=== PATIENT | male | born 1955 | race Caucasian/White ===

== ENCOUNTER 2020-06-22 17:20 | Emergency (ER) | payer BC ==
[2020-06-22] MEDS ORDERED: Nitroglycerin 0.4 MG Tab.SL ONE (17:40)
[2020-06-22] MEDS: Nitroglycerin 0.4 MG Tab.SL SL PRN ×3 (17:42→18:15)
--- NOTE | 2020-06-22 17:45 | EDM.PDOC ---
ED HPI GENERAL MEDICAL PROBLEM - General Chief Complaint: Chest Pain Stated Complaint: CHEST PAIN Time Seen by Provider: 06/22/20 17:37 Source of Information: Reports: Patient History Limitations: Reports: No Limitations - History of Present Illness INITIAL COMMENTS - FREE TEXT/NARRATIVE: Patient presents with left chest pain that started about 7.5 hours ago but worsened 1.5 hours ago with diaphoresis. He says it feels similar to a heart attack he had 7 years ago. He had cath then but was told there wasn't enough blockage to place a stent. He takes something for blood pressure too but hasn't had it today and doesn't remember what it is. On further questioning, he admits he hasn't been taking any of his meds for at least 3-4 weeks. Left Mid-Sternal Chest Pain Score (Numeric/FACES): 6 - Related Data Allergies Allergy/AdvReac Type Severity Reaction Status Date / Time No Known Drug Allergies Allergy Cannot Verified 06/22/20 17:28 Remember Home Meds: Home Meds Aspirin [Aspirin EC] 81 mg PO DAILY 06/22/20 [History] Spironolactone [Aldactone] 25 mg PO DAILY 06/22/20 [History] amLODIPine Besylate [Amlodipine Besylate] 10 mg PO DAILY 06/22/20 [History] atorvaSTATin [Lipitor] 20 mg PO BEDTIME 06/22/20 [History] carvediloL [Carvedilol] 25 mg PO BIDMEALS 06/22/20 [History] hydroCHLOROthiazide [Hydrochlorothiazide] 25 mg PO DAILY 06/22/20 [History] lisinopriL [Lisinopril] 40 mg PO DAILY 06/22/20 [History] ED ROS GENERAL - Review of Systems Review Of Systems: See Below Constitutional: Denies: Fever, Malaise, Weakness HEENT: Denies: Ear Pain, Throat Pain, Vision Change Respiratory: Denies: Shortness of Breath, Cough Cardiovascular: Reports: Chest Pain GI/Abdominal: Denies: Abdominal Pain, Diarrhea, Nausea, Vomiting : Reports: No Symptoms Musculoskeletal: Denies: Neck Pain, Shoulder Pain, Arm Pain, Back Pain, Hand Pain Skin: Reports: Diaphoresis. Denies: Cyanosis, Jaundice, Mottled, Pallor Neurological: Denies: Confusion, Dizziness, Headache, Seizure, Syncope, Trouble Speaking, Difficulty Walking Psychiatric: Denies: Agitation, Anxiety, Confusion ED EXAM, GENERAL - Physical Exam Exam: See Below Exam Limited By: No Limitations General Appearance: Alert, WD/WN, No Apparent Distress Eye Exam: Bilateral Eye: EOMI, Normal Inspection, PERRL Ears: Normal External Exam, Hearing Grossly Normal Nose: Normal Inspection, No Blood Throat/Mouth: Normal Inspection, Normal Lips, Normal Voice, No Airway Compromise Head: Atraumatic, Normocephalic Neck: Normal Inspection, Supple, Non-Tender, Full Range of Motion. No: Carotid Bruit Respiratory/Chest: No Respiratory Distress, Lungs Clear, Normal Breath Sounds, No Accessory Muscle Use Cardiovascular: Normal Peripheral Pulses, Regular Rate, Rhythm, No Murmur GI/Abdominal: Soft, Non-Tender, No Organomegaly Back Exam: Normal Inspection, Full Range of Motion Extremities: Normal Inspection, Normal Range of Motion Neurological: Alert, Oriented, Normal Cognition, No Motor/Sensory Deficits Psychiatric: Normal Affect, Normal Mood Skin Exam: Warm, Dry, Intact, Normal Color, No Rash Course - Vital Signs Last Recorded V/S: Last Vital Signs Temp 99.3 F 06/22/20 17:23 Pulse 96 06/22/20 17:23 Resp 16 06/22/20 17:23 BP 149/87 H 06/22/20 18:15 Pulse Ox 95 06/22/20 17:23 - Orders/Labs/Meds Orders: Active Orders 24 hr Category Date Time Status EKG Documentation Completion [RC] ASDIRECTED Care 06/22/20 17:42 Active Peripheral IV Care [RC] . DIRECTED Care 06/22/20 17:43 Active Nitroglycerin/D5W [Nitroglycerin 50 MG/D5W 250 ML] Med 06/22/20 19:15 Active 50 mg in 250 ml IV TITRATE Sodium Chloride 0.9% [Normal Saline] 100 ml Med 06/22/20 19:50 Active IV ASDIRECTED Sodium Chloride 0.9% [Saline Flush] Med 06/22/20 17:43 Active 10 ml FLUSH Q8HR PRN Peripheral IV Insertion Adult [OM.PC] Routine Oth 06/22/20 17:43 Ordered EKG 12 Lead [EK] Stat Ther 06/22/20 17:42 Ordered Medication Orders Nitroglycerin/Dextrose (Nitroglycerin 50 Mg/D5w 250 Ml) 50 mg in 250 mls @ 3 mls/hr IV TITRATE CHARMAINE; Protocol Last Admin: 06/22/20 19:52 Dose: 5 mcg/min, 1.5 mls/hr Documented by: RICHARD Sodium Chloride (Normal Saline) 100 mls @ 10 mls/hr IV ASDIRECTED CHARMAINE; Protocol Last Admin: 06/22/20 19:52 Dose: 10 mls/hr Documented by: BRYANT Sodium Chloride (Saline Flush) 10 ml FLUSH Q8HR PRN PRN Reason: keep vein open Last Admin: 06/22/20 19:51 Dose: 10 ml Documented by: Admin: 06/22/20 18:52 Dose: 10 ml Documented by: RICHARD Labs: Laboratory Tests 06/22/20 06/22/20 06/22/20 Range/Units 17:35 17:35 17:35 WBC 12.39 H (5.00-10.00) 10^3/uL RBC 5.29 (4.50-6.00) 10^6/uL Hgb 14.7 (13.0-17.0) g/dL Hct 46.0 (40.0-52.0) % MCV 87.0 (82.0-92.0) fL MCH 27.8 (27.0-31.0) pg MCHC 32.0 (32.0-36.0) g/dL RDW 14.5 (11.5-14.5) % Plt Count 288 (150-400) 10^3/uL MPV 9.1 (7.4-10.4) fL Immature Gran % (Auto) 0.6 (0.0-5.0) % Neut % (Auto) 63.3 (50.0-70.0) % Lymph % (Auto) 18.6 L (20.0-40.0) % [place] % (Auto) 12.5 H (2.0-8.0) % Eos % (Auto) 4.4 H (1.0-3.0) % Baso % (Auto) 0.6 (0.0-1.0) % Neut # (Auto) 7.85 H (2.50-7.00) 10^3/uL Lymph # (Auto) 2.31 (1.00-4.00) 10^3/uL [place] # (Auto) 1.55 H (0.10-0.80) 10^3/uL Eos # (Auto) 0.54 H (0.10-0.30) 10^3/uL Baso # (Auto) 0.07 (0.00-0.10) 10^3/uL Immature Gran # (Auto) 0.07 (0.00-0.50) 10^3/uL APTT 27.1 (22.8-31.4) SEC Sodium 134 L (136-145) mmol/L Potassium 4.3 (3.3-5.3) mmol/L Chloride 102 (98-115) mmol/L Carbon Dioxide 26.2 (21.0-32.0) mmol/L Anion Gap 10.1 (5-15) mmol/L BUN 35 H (6-25) mg/dL Creatinine 1.72 H (0.51-1.17) mg/dL Est Cr Clr Drug Dosing TNP Estimated GFR (MDRD) 40 mL/min Glucose 139 H (75 - 99) mg/dL Calcium 8.8 (8.7-10.3) mg/dL Total Bilirubin 0.3 (0.2-1.0) mg/dL AST 31 (15-37) U/L ALT 35 (12-78) U/L Alkaline Phosphatase 160 H (46-116) IU/L Troponin I 0.21 H* (0.00-0.070) ng/mL Total Protein 6.8 (6.4-8.2) g/dL Albumin 3.25 (3.00-4.80) g/dL SARS CoV-2 RNA Rapid GA (NEGATIVE) 06/22/20 Range/Units 20:27 WBC (5.00-10.00) 10^3/uL RBC (4.50-6.00) 10^6/uL Hgb (13.0-17.0) g/dL Hct (40.0-52.0) % MCV (82.0-92.0) fL MCH (27.0-31.0) pg MCHC (32.0-36.0) g/dL RDW (11.5-14.5) % Plt Count (150-400) 10^3/uL MPV (7.4-10.4) fL Immature Gran % (Auto) (0.0-5.0) % Neut % (Auto) (50.0-70.0) % Lymph % (Auto) (20.0-40.0) % [place] % (Auto) (2.0-8.0) % Eos % (Auto) (1.0-3.0) % Baso % (Auto) (0.0-1.0) % Neut # (Auto) (2.50-7.00) 10^3/uL Lymph # (Auto) (1.00-4.00) 10^3/uL [place] # (Auto) (0.10-0.80) 10^3/uL Eos # (Auto) (0.10-0.30) 10^3/uL Baso # (Auto) (0.00-0.10) 10^3/uL Immature Gran # (Auto) (0.00-0.50) 10^3/uL APTT (22.8-31.4) SEC Sodium (136-145) mmol/L Potassium (3.3-5.3) mmol/L Chloride (98-115) mmol/L Carbon Dioxide (21.0-32.0) mmol/L Anion Gap (5-15) mmol/L BUN (6-25) mg/dL Creatinine (0.51-1.17) mg/dL Est Cr Clr Drug Dosing Estimated GFR (MDRD) mL/min Glucose (75 - 99) mg/dL Calcium (8.7-10.3) mg/dL Total Bilirubin (0.2-1.0) mg/dL AST (15-37) U/L ALT (12-78) U/L Alkaline Phosphatase (46-116) IU/L Troponin I (0.00-0.070) ng/mL Total Protein (6.4-8.2) g/dL Albumin (3.00-4.80) g/dL SARS CoV-2 RNA Rapid GA Negative (NEGATIVE) Meds: Medications Generic Name Dose Route Start Last Admin Trade Name Freq PRN Reason Stop Dose Admin Nitroglycerin/Dextrose 50 mg in 250 mls @ 3 mls/hr 06/22/20 19:15 06/22/20 19:52 Nitroglycerin 50 Mg/D5w 250 Ml IV 5 mcg/min TITRATE CHARMAINE 1.5 mls/hr Administration Protocol 10 MCG/MIN Sodium Chloride 100 mls @ 10 mls/hr 06/22/20 19:50 06/22/20 19:52 Normal Saline IV 10 mls/hr ASDIRECTED CHARMAINE Administration Protocol Sodium Chloride 10 ml 06/22/20 17:43 06/22/20 19:51 Saline Flush FLUSH 10 ml Q8HR PRN Administration keep vein open Discontinued Medications Generic Name Dose Route Start Last Admin Trade Name Joycelyn PRN Reason Stop Dose Admin Aspirin 324 mg 06/22/20 18:43 06/22/20 18:46 Aspirin PO 06/22/20 18:44 324 mg ONETIME ONE Administration Heparin Sodium (Porcine) 5,000 units 06/22/20 19:08 06/22/20 19:50 Heparin Sodium IVPUSH 06/22/20 19:09 5,000 units ONETIME ONE Administration Sodium Chloride Confirm 06/22/20 19:49 06/22/20 20:02 Normal Saline Administered 06/22/20 19:50 Not Given Dose 100 mls @ as directed .ROUTE .STK-MED ONE Morphine Sulfate 2 mg 06/22/20 18:38 06/22/20 18:48 Morphine IVPUSH 06/22/20 18:39 2 mg ONETIME ONE Administration Nitroglycerin Confirm 06/22/20 17:40 06/22/20 18:36 Nitrostat Administered 06/22/20 17:41 Not Given Dose 0.4 mg .ROUTE .STK-MED ONE Nitroglycerin 0.4 mg 06/22/20 17:54 06/22/20 18:15 Nitrostat SL 0.4 mg Q5M PRN Administration Chest Pain - Re-Assessments/Exams Free Text/Narrative Re-Assessment/Exam: 06/22/20 17:55 Pain dropped from 6 to 4 after first nitro. Giving another now. 06/22/20 18:31 Trop is 0.21, EKG shows nonspecific ST and T wave abnormality and incomplete LBBB. 1-[address] depression in aVF. I called [facility] and was informed that they likely can't take anything but STEMI or acute stroke until tomorrow. I informed them that I feel this patient will need to go to test lab technician KATERINE and symptoms are same as [place] 7 years ago per patient. They will call me back after reviewing the EKG with the product examiner. 06/22/20 18:52 Patient still having sharp chest pain at 4-5 level after 3 doses of SL nitro. Giving morphine 2 mg now. 06/22/20 18:55 We obtained a med list for the patient showing lisinopril, carvedilol, amlodipine spironolactone, hydrochlorothiazide, atorvastatin and aspirin. However patient hasn't taken any meds for 3-4 weeks he says. 06/22/20 19:13 Returned Materials Inspector called back and advised heparin acs protocol and nitro drip titrated for pain control. They cannot take the patient today and advised trying [facility]. I called [facility] and am waiting for call back from Dr. Bay. 06/22/20 19:35 After discussing case, Dr. Bay informed me that they cannot do cardiac interventions and won't have any cardiologists tomorrow. They advised [facility]. I called [facility] and am waiting drafter construction from Dr. Pendleton, product examiner. 06/22/20 19:58 Dr. Pendleton called and we discussed case. He will accept if they have bed space. He will call me back after they discuss it. Heparin bolus is in and nitro drip is running. Patient is starting to feel better. 06/22/20 20:24 Dr. Pendleton called back with acceptance. He requested I call the [facility] transfer number also with details. 06/22/20 20:26 Patient is stable. I have spent 2 hours trying to get him transferred and discussed case with 3 hospitals with multiple phone calls for each hospital. 06/22/20 21:52 Patient was stable at discharge from ER and will transfer to [facility] via EMS. Departure - Departure Time of Disposition: 20:25 Disposition: DC/Tfer to Acute Hospital 02 Reason for Transfer *Q: Other (the product examiner will determine timing of PCI) Condition: Good Clinical Impression: NSTEMI, initial episode of care, Elevated troponin, Bilateral pulmonary infiltrates on chest x-ray Chest pain due to myocardial ischemia Qualifiers: Ischemic chest pain type: unspecified angina pectoris type Qualified Code(s): I25.9 - Chronic ischemic heart disease, unspecified Referrals: Felicia De La Cruz DYNAMO TENDER [Primary Care Provider] - Forms: ED Department Discharge Sepsis Event Note (ED) - Evaluation Sepsis Screening Result: No Definite Risk - Focused Exam Vital Signs: Vital Signs Temp Pulse Resp BP BP Pulse Ox 06/22/20 18:15 149/87 H 06/22/20 17:54 220/112 H 06/22/20 17:42 220/137 H 06/22/20 17:23 99.3 F 96 16 232/121 H 95 - My Orders Last 24 Hours: My Active Orders 06/22/20 17:42 EKG Documentation Completion [RC] ASDIRECTED EKG 12 Lead [EK] Stat 06/22/20 17:43 Peripheral IV Care [RC] . DIRECTED Sodium Chloride 0.9% [Saline Flush] 10 ml FLUSH Q8HR PRN Peripheral IV Insertion Adult [OM.PC] Routine 06/22/20 19:15 Nitroglycerin/D5W [Nitroglycerin 50 MG/D5W 250 ML] 50 mg in 250 ml IV TITRATE 06/22/20 19:50 Sodium Chloride 0.9% [Normal Saline] 100 ml IV ASDIRECTED - Assessment/Plan Last 24 Hours: My Active Orders 06/22/20 17:42 EKG Documentation Completion [RC] ASDIRECTED EKG 12 Lead [EK] Stat 06/22/20 17:43 Peripheral IV Care [RC] . DIRECTED Sodium Chloride 0.9% [Saline Flush] 10 ml FLUSH Q8HR PRN Peripheral IV Insertion Adult [OM.PC] Routine 06/22/20 19:15 Nitroglycerin/D5W [Nitroglycerin 50 MG/D5W 250 ML] 50 mg in 250 ml IV TITRATE 06/22/20 19:50 Sodium Chloride 0.9% [Normal Saline] 100 ml IV ASDIRECTED
--- NOTE | 2020-06-22 18:21 | CR ---
[id number] RAD/RAD Chest PA And Lateral EXAM: RAD Chest PA And Lateral INDICATION: CHEST PAIN. COMPARISON: June 16, 2012. DISCUSSION: Cardiomediastinal silhouette is normal in size and contour. Bibasilar pulmonary infiltrates. No pneumothorax or pleural effusion. IMPRESSION: Bibasilar pulmonary infiltrates. Felice Montez DO 06/22/20 1820 Thank you for allowing us to participate in the care of your patient.
[2020-06-22 18:24] LABS: ANION GAP 10.1 mmol/L (5-15); CHLORIDE,CL 102 mmol/L (98-115); SODIUM,NA 134 mmol/L (136-145)
[2020-06-22] MEDS ORDERED: Morphine 2 MG/ML SYRINGE IVPUSH ONE (18:38)
[2020-06-22] MEDS ORDERED: Aspirin 81 MG Tab.Chew PO ONE (18:43)
[2020-06-22] MEDS: Sodium Chloride 0.9% 10 ML Syringe FLUSH PRN ×2 (18:52→19:51)
[2020-06-22] MEDS ORDERED: Heparin Sodium 5,000 Units/ML Vial IVPUSH ONE (19:08)
[2020-06-22] MEDS ORDERED: Sodium Chloride 0.9% 100 ML ONE (19:49)
[2020-06-22] MEDS ORDERED: Sodium Chloride 0.9% 100 ML IV SCH (19:50)
== END 2020-06-22 21:20 ==
LOC: KA.ED 17:20
DX: I21.4 Non-ST elevation (NSTEMI) myocardial infarction (principal); I25.9 Chronic ischemic heart disease, unspecified; R91.8 Other nonspecific abnormal finding of lung field; R74.8 Abnormal levels of other serum enzymes; Z20.828 Contact with and (suspected) exposure to other viral communicable diseases; Z79.82 Long term (current) use of aspirin; Z79.899 Other long term (current) drug therapy
CPT/HCPCS: 71046; 80053; 84484; 85025; 85730; 96365; 96375; 99284; 99285-25; A9270-GY; J1644; J2270; U0002